=== PATIENT | female | born 1980 | race African-American/Black ===

== ENCOUNTER 2017-12-18 22:00 | Emergency (ER) | payer OTHER ==
[~2017-12-18] VITALS: Ht 167.6 cm; Wt 122.5 kg
[2017-12-18 22:10] VITALS: BP 114/78
[2017-12-18] MEDS ORDERED: Lidocaine 2% Visc 15ml soln ORAL ONE (22:15)
[2017-12-18 22:55] VITALS: BP 114/78
--- NOTE | 2017-12-19 01:57 | Emergency Room Report ---
History of Present Illness General Chief Complaint: Pain Source: Patient Present Illness HPI 37-year-old female presents ED stating that her tongue is stuck in her braces. Occurred approximately one hour ago. Does not know how it happened. Pain is sharp, 8 out of 10, nonradiating. No other aggravating relieving factors. Denies any other associated symptoms. Allergies: Coded Allergies: No Known Allergies (Unverified , 12/18/17) Patient History Past Medical History: none Past Surgical History: none Pertinent Family History: none Social History: Denies: smoking, alcohol use, drug use Last Menstrual Period: 3 weeks ago Now: Yes Immunizations: UTD Reviewed Nursing Documentation: PMH: Agreed; PSxH: Agreed Nursing Documentation-PMH Past Medical History: No Stated History Review of Systems All Other Systems: negative except mentioned in HPI Physical Exam Vital Signs Date Time Temp Pulse Resp B/P (MAP) Pulse Ox O2 Delivery O2 Flow Rate FiO2 12/18/17 22:05 98.5 92 16 114/78 99 Room Air 98.4 Sp02 EP Interpretation: reviewed, normal General Appearance: no apparent distress, alert, GCS 15, non-toxic, obese Head: normocephalic Eyes: bilateral eye normal inspection, bilateral eye PERRL ENT: other - inferior portion of lateral tongue caught in braces on lower teeth on left. no active bleeding Neck: full range of motion, supple/symm/no masses Respiratory: normal inspection Cardiovascular #1: normal inspection Gastrointestinal: normal inspection Rectal: deferred Genitourinary: no CVA tenderness Musculoskeletal: normal inspection Neurologic: alert, oriented x3, responsive, motor strength/tone normal, sensory intact, speech normal Psychiatric: normal inspection Skin: normal inspection Lymphatic: normal inspection Medical Decision Making Diagnostic Impression: Primary Impression: Tongue irritation ER Course 37-year-old female presents ED with tongue stuck in her braces Differentiallaceration, abrasion, defective braces Patient placed in chair. After initial history, exam reveals a female in no acute distress. On exam there is inferior portion of the tongue stuck in the braces in the lower jaw. No active bleeding. Viscous lidocaine applied to numb the area. Using sterile technique I was able to manipulate the tongue until freed. Patient tolerated procedure without difficulty. Patient states the discharge. Patient will follow-up with her dentist for possible adjustment of her braces Diagnosistongue irritation Stable and discharged to home. Follow-up with dentistry. Return to ED if symptoms recur or worsen Last Vital Signs Date Time Temp Pulse Resp B/P (MAP) Pulse Ox O2 Delivery O2 Flow Rate FiO2 12/18/17 22:55 98.4 16 114/78 99 Room Air 98.4 12/18/17 22:05 92 Status: improved Disposition: HOME, SELF-CARE Condition: Stable Patient Instructions: Tongue Laceration, Qakn-yz-Orvy Anand Conteh MD Dec 19, 2017 01:57
== END 2017-12-18 22:55 | disposition home or self-care (01) ==
LOC: EMR 22:30
DX: S00.552A Superficial foreign body of oral cavity, initial encounter (principal); X58.XXXA Exposure to other specified factors, initial encounter; Y93.89 Activity, other specified; Y92.9 Unspecified place or not applicable
CPT/HCPCS: 99282